=== PATIENT | male | born 2005 | race Caucasian/White ===

== ENCOUNTER 2024-02-10 11:59 | Outpatient (REF) | payer MEDICAID, SELFPAY ==
[2024-02-10 15:00] LABS: CT PCR NOT DETECTED (Not Detect.); NG PCR NOT DETECTED (Not Detect.)
[2024-02-11 03:53] LABS: Syphilis Screen Nonreactive (Nonreactive)
[2024-02-11 04:09] LABS: Hepatitis B Surface Antigen Negative (Negative)
[2024-02-11 04:40] LABS: HIV AB/AG Nonreactive (Nonreactive); HIV Num 1 0.06 S/CO (0.00-0.99); ~HepC Num1 0.12 S/CO (0.00-0.79); ~Hepatitis C Antibody Nonreactive (Nonreactive)
[2024-02-11 10:58] LABS: HBS Num1 59.96 mIU/mL (0-7.99); ~Hepatitis B Surface Antibody REACTIVE (Nonreactive)
== END 2024-02-10 12:00 | disposition home or self-care (01) ==
LOC: HO.HHCL 11:59
PROVIDERS: Visit Provider Registered Nurse
DX: Z11.3 Encounter for screening for infections with a predominantly sexual mode of transmission (principal)
CPT/HCPCS: 36415; 86706; 86780; 86803; 87340; 87389; 87491; 87591